=== PATIENT | male | born 1985 ===

== ENCOUNTER 2022-04-15 11:04 | Inpatient (IN) ==
[2022-04-15] MEDS ORDERED: LACTULOSE 20 GM/30 ML UDCUP PO PRN (15:15)
[2022-04-15] MEDS ORDERED: DOCUSATE SODIUM 100 MG CAPSULE PO PRN (15:15)
[2022-04-15] MEDS ORDERED: ALUMINUM/MAGNES/SIMETH MAX STR 30 ML UDCUP PO PRN (15:15)
[2022-04-15] MEDS ORDERED: GLUCAGON 1 MG VIAL IM PRN (15:15)
[2022-04-15] MEDS ORDERED: hydrALAZINE 20 MG/1 ML VIAL IV PRN (15:15)
[2022-04-15] MEDS ORDERED: ACETAMINOPHEN 325 MG TABLET PO PRN (15:15)
[2022-04-15] MEDS ORDERED: ONDANSETRON 4 MG/2 ML VIAL IV PRN (15:15)
[2022-04-15 15:40] LABS: Basophils % 0.7 % (0.0-0.8); Eosinophils # 0.2 10*3/uL (0.0-0.87); Eosinophils % 3.9 % (0.00-10.9); Hematocrit 25.3 VOL% (42.0-52.0); Immature Granulocytes % 0.2 %; Immature Granulocytes Absolute 0.01 #; Lymphocytes # 0.6 10*3/uL (1.4-4.0); Lymphocytes % 12.2 % (21.2-54.2); Mean Corpuscular HGB Conc 31.6 GM/DL (32-36); Mean Corpuscular Volume 87.2 FL (87-102); Mean Platelet Volume 9.1 FL (9.6-12.0); Monocytes # 0.5 10*3/uL (0.11-0.8); Monocytes % 10.3 % (1.7-12.7); Neutrophils % 72.7 % (38.7-73.9); Platelet Count 159 T/CUMM (130-400); Red Cell Distribution Width 17.4 % (9.3-17.3); White Blood Count 4.6 T/CUMM (4-12)
[2022-04-15] MEDS ORDERED: DEXTROSE 10% 250 ML BAG IV PRN (15:46)
[2022-04-15 16:08] LABS: Albumin 2.9 G/DL (3.4-5.0); Bilirubin,Total 0.8 MG/DL (0.20-1.00); Calcium 7.8 MG/DL (8.5-10.1); Osmolality,Calculated 311.7 MOS/KG (273-304); Potassium 3.7 MMOL/L (3.5-5.1); Total Protein 7.3 G/DL (6.4-8.2)
[2022-04-15 16:16] LABS: Thyroid Stimulating Hormone 4.26 uIU/ml (0.358-3.74)
[2022-04-15] MEDS: FUROSEMIDE 40 MG/4 ML VIAL IV SCH (16:22)
[2022-04-15] MEDS: METOPROLOL SUCCINATE XL 25 MG TABLET PO SCH (20:35)
[2022-04-15] MEDS: HEPARIN 5,000 UNIT/1 ML VIAL SUBCUT SCH (20:35)
[2022-04-15] MEDS: ATORVASTATIN 40 MG TABLET PO SCH (20:35)
[2022-04-15] MEDS: FERROUS SULFATE 325 MG TABLET PO SCH (20:35)
[2022-04-15 21:43] LABS: Bilirubin,Urine Negative (Negative); Blood, Urine Small mg/dL (Negative); Glucose,Urine (UA) Negative (Negative); Hyaline Casts,Urine 1 /LPF (0-3); Ketones,Urine Negative (Negative); Mucus,Urine Occasional /LPF (Occasional); Nitrite,Urine Negative (Negative); Protein,Urine 30 mg/dL (Negative); RBC,Urine 5 /HPF (0-4); Squamous Epithelial Cell,Urine Occasional /HPF (0-10); Urine Appearance CLEAR (Clear); Urine Color Yellow (Yellow); Urine Specific Gravity 1.009 (1.001-1.035); Urine Urobilinogen < 2.0 eU/dL (<2.0)
[2022-04-16 04:41] LABS: Basophils % 0.6 % (0.0-0.8); Eosinophils # 0.2 10*3/uL (0.0-0.87); Hematocrit 24.1 VOL% (42.0-52.0); Hemoglobin 7.5 GM/DL (14.0-18.0); Immature Granulocytes % 0.4 %; Immature Granulocytes Absolute 0.02 #; Lymphocytes # 0.9 10*3/uL (1.4-4.0); Lymphocytes % 17.8 % (21.2-54.2); Mean Corpuscular HGB Conc 31.1 GM/DL (32-36); Mean Corpuscular Volume 87.6 FL (87-102); Mean Platelet Volume 9.6 FL (9.6-12.0); Monocytes # 0.5 10*3/uL (0.11-0.8); Monocytes % 11.3 % (1.7-12.7); Neutrophils % 65.9 % (38.7-73.9); Platelet Count 151 T/CUMM (130-400); Red Blood Count 2.75 MC/CUMM (3.8-5.5); Red Cell Distribution Width 17.3 % (9.3-17.3); White Blood Count 4.8 T/CUMM (4-12)
[2022-04-16 05:04] LABS: Albumin 2.8 G/DL (3.4-5.0); Bilirubin,Total 0.8 MG/DL (0.20-1.00); Calcium 7.6 MG/DL (8.5-10.1); Osmolality,Calculated 312.4 MOS/KG (273-304); Risk Ratio 1.45; Total Protein 7.1 G/DL (6.4-8.2)
[2022-04-16] MEDS: FUROSEMIDE 40 MG/4 ML VIAL IV SCH (08:47)
[2022-04-16] MEDS: HEPARIN 5,000 UNIT/1 ML VIAL SUBCUT SCH ×2 (08:47→20:26)
[2022-04-16] MEDS: PANTOPRAZOLE 40 MG TABLET PO SCH (08:48)
[2022-04-16] MEDS: FERROUS SULFATE 325 MG TABLET PO SCH ×3 (08:48→20:26)
[2022-04-16] MEDS: METOPROLOL SUCCINATE XL 25 MG TABLET PO SCH ×2 (08:48→20:26)
[2022-04-16 08:58] LABS: Free T4 (Free Thyroxine) 1.09 NG/DL (0.76-1.46)
[2022-04-16] MEDS: ATORVASTATIN 40 MG TABLET PO SCH (20:26)
[2022-04-17 04:20] LABS: Basophils % 0.5 % (0.0-0.8); Eosinophils # 0.2 10*3/uL (0.0-0.87); Eosinophils % 4.7 % (0.00-10.9); Hemoglobin 7.1 GM/DL (14.0-18.0); Immature Granulocytes % 0.2 %; Immature Granulocytes Absolute 0.01 #; Lymphocytes # 0.9 10*3/uL (1.4-4.0); Lymphocytes % 21.7 % (21.2-54.2); Mean Corpuscular HGB Conc 30.9 GM/DL (32-36); Mean Corpuscular Volume 88.8 FL (87-102); Mean Platelet Volume 9.5 FL (9.6-12.0); Monocytes # 0.5 10*3/uL (0.11-0.8); Monocytes % 12.3 % (1.7-12.7); Neutrophils % 60.6 % (38.7-73.9); Platelet Count 139 T/CUMM (130-400); Red Blood Count 2.59 MC/CUMM (3.8-5.5); Red Cell Distribution Width 17.4 % (9.3-17.3); White Blood Count 4.1 T/CUMM (4-12)
[2022-04-17 04:46] LABS: Calcium 7.6 MG/DL (8.5-10.1); Osmolality,Calculated 317.1 MOS/KG (273-304); Potassium 3.9 MMOL/L (3.5-5.1)
[2022-04-17] MEDS: FERROUS SULFATE 325 MG TABLET PO SCH ×3 (09:20→20:46)
[2022-04-17] MEDS: METOPROLOL SUCCINATE XL 25 MG TABLET PO SCH (09:20)
[2022-04-17] MEDS: PANTOPRAZOLE 40 MG TABLET PO SCH (09:21)
[2022-04-17] MEDS: HEPARIN 5,000 UNIT/1 ML VIAL SUBCUT SCH ×2 (09:23→20:46)
[2022-04-17] MEDS: FUROSEMIDE 40 MG/4 ML VIAL IV SCH (09:23)
[2022-04-17 12:53] LABS: % Iron Saturation 12.7 % (18-50)
[2022-04-17 13:18] LABS: Folate 5.04 NG/ML (5.38-24.0)
[2022-04-17 17:08] LABS: Basophils % 0.7 % (0.0-0.8); Eosinophils # 0.2 10*3/uL (0.0-0.87); Hematocrit 25.1 VOL% (42.0-52.0); Hemoglobin 7.8 GM/DL (14.0-18.0); Immature Granulocytes % 0.2 %; Immature Granulocytes Absolute 0.01 #; Lymphocytes # 0.9 10*3/uL (1.4-4.0); Lymphocytes % 19.2 % (21.2-54.2); Mean Corpuscular HGB Conc 31.1 GM/DL (32-36); Mean Corpuscular Volume 87.8 FL (87-102); Mean Platelet Volume 9.4 FL (9.6-12.0); Monocytes # 0.4 10*3/uL (0.11-0.8); Monocytes % 9.4 % (1.7-12.7); Neutrophils % 66.5 % (38.7-73.9); Platelet Count 152 T/CUMM (130-400); Red Blood Count 2.86 MC/CUMM (3.8-5.5); Red Cell Distribution Width 17.4 % (9.3-17.3); White Blood Count 4.5 T/CUMM (4-12)
[2022-04-17 17:31] LABS: Folate 6.38 NG/ML (5.38-24.0); Vitamin B12 439 PG/ML (211-911)
[2022-04-17 18:13] LABS: Sedimentation Rate-Westergren 69 MM/HR (0-15)
[2022-04-17] MEDS: ATORVASTATIN 40 MG TABLET PO SCH (20:46)
[2022-04-17] MEDS: METOPROLOL SUCCINATE XL 50 MG TABLET PO SCH (20:46)
[2022-04-18 04:51] LABS: Basophils % 0.5 % (0.0-0.8); Eosinophils # 0.2 10*3/uL (0.0-0.87); Eosinophils % 5.2 % (0.00-10.9); Hematocrit 22.5 VOL% (42.0-52.0); Hemoglobin 6.9 GM/DL (14.0-18.0); Immature Granulocytes % 0.3 %; Immature Granulocytes Absolute 0.01 #; Lymphocytes # 0.8 10*3/uL (1.4-4.0); Lymphocytes % 21.2 % (21.2-54.2); Mean Corpuscular HGB Conc 30.7 GM/DL (32-36); Mean Corpuscular Volume 89.3 FL (87-102); Mean Platelet Volume 9.3 FL (9.6-12.0); Monocytes # 0.5 10*3/uL (0.11-0.8); Monocytes % 12.9 % (1.7-12.7); Neutrophils % 59.9 % (38.7-73.9); Platelet Count 123 T/CUMM (130-400); Red Blood Count 2.52 MC/CUMM (3.8-5.5); Red Cell Distribution Width 17.4 % (9.3-17.3); White Blood Count 3.9 T/CUMM (4-12)
[2022-04-18 05:19] LABS: Calcium 7.6 MG/DL (8.5-10.1); Osmolality,Calculated 318.1 MOS/KG (273-304)
[2022-04-18] MEDS ORDERED: SODIUM CHLORIDE 0.9% 1,000 ML IV PRN (08:00)
[2022-04-18] MEDS: PANTOPRAZOLE 40 MG TABLET PO SCH (09:12)
[2022-04-18] MEDS: METOPROLOL SUCCINATE XL 50 MG TABLET PO SCH ×2 (09:12→22:42)
[2022-04-18] MEDS: FERROUS SULFATE 325 MG TABLET PO SCH (09:13)
[2022-04-18] MEDS: HEPARIN 5,000 UNIT/1 ML VIAL SUBCUT SCH ×2 (09:13→22:41)
[2022-04-18] MEDS: FUROSEMIDE 40 MG/4 ML VIAL IV SCH (09:14)
[2022-04-18 12:31] LABS: Hemoglobin A1 (Alkaline) 98.4 % (96.5-98.5); Hemoglobin A2 (Alkaline) 1.6 % (1.5-3.5)
[2022-04-18 19:14] LABS: Hematocrit 26.8 VOL% (42.0-52.0); Hemoglobin 8.3 GM/DL (14.0-18.0)
[2022-04-18] MEDS: ATORVASTATIN 40 MG TABLET PO SCH (22:41)
[2022-04-19 05:36] LABS: Basophils % 0.7 % (0.0-0.8); Eosinophils # 0.2 10*3/uL (0.0-0.87); Eosinophils % 5.5 % (0.00-10.9); Hematocrit 25.8 VOL% (42.0-52.0); Immature Granulocytes % 0.5 %; Immature Granulocytes Absolute 0.02 #; Lymphocytes # 0.9 10*3/uL (1.4-4.0); Lymphocytes % 22.5 % (21.2-54.2); Mean Corpuscular Volume 88.1 FL (87-102); Mean Platelet Volume 9.8 FL (9.6-12.0); Monocytes # 0.5 10*3/uL (0.11-0.8); Monocytes % 12.5 % (1.7-12.7); Neutrophils % 58.3 % (38.7-73.9); Platelet Count 127 T/CUMM (130-400); Red Blood Count 2.93 MC/CUMM (3.8-5.5); Red Cell Distribution Width 17.6 % (9.3-17.3); White Blood Count 4.2 T/CUMM (4-12)
[2022-04-19 05:53] LABS: Calcium 7.9 MG/DL (8.5-10.1); Osmolality,Calculated 314.3 MOS/KG (273-304); Potassium 4.1 MMOL/L (3.5-5.1)
[2022-04-19] MEDS: SODIUM CHLORIDE 0.9% 500 ML IV SCH (08:38)
[2022-04-19] MEDS ORDERED: propofoL 200 MG/20 ML VIAL IV ONE (08:49)
[2022-04-19] MEDS ORDERED: ETOMIDATE 20 MG/10 ML VIAL IV ONE (08:49)
[2022-04-19] MEDS ORDERED: LIDOCAINE 2% 5 ML VIAL ONE (08:49)
[2022-04-19] MEDS ORDERED: FERRIC GLUCONATE COMPLEX 125 MG in SODIUM CHLORIDE 0.9% 100 ML IV SCH (09:00)
[2022-04-19] MEDS ORDERED: PANTOPRAZOLE 40 MG TABLET PO ONE (09:49)
[2022-04-19] MEDS: METOPROLOL SUCCINATE XL 50 MG TABLET PO SCH ×2 (09:56→22:33)
[2022-04-19] MEDS: PANTOPRAZOLE 40 MG TABLET PO SCH ×2 (09:56→22:33)
[2022-04-19] MEDS: ATORVASTATIN 40 MG TABLET PO SCH (22:32)
[2022-04-20 05:11] LABS: Basophils % 0.5 % (0.0-0.8); Eosinophils # 0.2 10*3/uL (0.0-0.87); Eosinophils % 5.6 % (0.00-10.9); Hematocrit 25.2 VOL% (42.0-52.0); Hemoglobin 7.8 GM/DL (14.0-18.0); Immature Granulocytes % 0.2 %; Immature Granulocytes Absolute 0.01 #; Lymphocytes # 0.9 10*3/uL (1.4-4.0); Lymphocytes % 20.8 % (21.2-54.2); Mean Corpuscular Volume 89.7 FL (87-102); Mean Platelet Volume 9.7 FL (9.6-12.0); Monocytes # 0.5 10*3/uL (0.11-0.8); Monocytes % 12.7 % (1.7-12.7); Neutrophils % 60.2 % (38.7-73.9); Platelet Count 119 T/CUMM (130-400); Red Blood Count 2.81 MC/CUMM (3.8-5.5); Red Cell Distribution Width 17.7 % (9.3-17.3); White Blood Count 4.1 T/CUMM (4-12)
[2022-04-20 05:31] LABS: Calcium 7.8 MG/DL (8.5-10.1); Osmolality,Calculated 316.3 MOS/KG (273-304); Potassium 4.1 MMOL/L (3.5-5.1)
[2022-04-20] MEDS: METOPROLOL SUCCINATE XL 50 MG TABLET PO SCH ×2 (10:22→21:18)
[2022-04-20] MEDS: PANTOPRAZOLE 40 MG TABLET PO SCH ×2 (10:22→21:17)
[2022-04-20] MEDS: SODIUM CHLORIDE 0.9% 500 ML IV SCH (10:26)
[2022-04-20] MEDS: FERRIC GLUCONATE COMPLEX 250 MG in SODIUM CHLORIDE 0.9% 100 ML IV SCH (10:26)
[2022-04-20] MEDS ORDERED: SODIUM CHLORIDE 0.9% 1,000 ML IV PRN (13:05)
[2022-04-20] MEDS: ATORVASTATIN 40 MG TABLET PO SCH (21:17)
[2022-04-21 05:59] LABS: Basophils % 0.5 % (0.0-0.8); Eosinophils # 0.2 10*3/uL (0.0-0.87); Eosinophils % 4.9 % (0.00-10.9); Hematocrit 27.2 VOL% (42.0-52.0); Hemoglobin 8.3 GM/DL (14.0-18.0); Immature Granulocytes % 0.3 %; Immature Granulocytes Absolute 0.01 #; Lymphocytes # 0.9 10*3/uL (1.4-4.0); Lymphocytes % 22.3 % (21.2-54.2); Mean Corpuscular HGB Conc 30.5 GM/DL (32-36); Mean Corpuscular Volume 89.8 FL (87-102); Mean Platelet Volume 10.2 FL (9.6-12.0); Monocytes # 0.5 10*3/uL (0.11-0.8); Monocytes % 11.9 % (1.7-12.7); Neutrophils % 60.1 % (38.7-73.9); Platelet Count 124 T/CUMM (130-400); Red Blood Count 3.03 MC/CUMM (3.8-5.5); Red Cell Distribution Width 17.4 % (9.3-17.3); White Blood Count 3.9 T/CUMM (4-12)
[2022-04-21 06:29] LABS: Calcium 7.7 MG/DL (8.5-10.1); Osmolality,Calculated 310.5 MOS/KG (273-304); Potassium 4.1 MMOL/L (3.5-5.1)
[2022-04-21] MEDS: METOPROLOL SUCCINATE XL 50 MG TABLET PO SCH (08:19)
[2022-04-21] MEDS: PANTOPRAZOLE 40 MG TABLET PO SCH (08:19)
[2022-04-21] MEDS: HEPARIN 5,000 UNIT/1 ML VIAL SUBCUT SCH (08:20)
[2022-04-21] MEDS: FERRIC GLUCONATE COMPLEX 250 MG in SODIUM CHLORIDE 0.9% 100 ML IV SCH (08:22)
[2022-04-21] MEDS ORDERED: FUROSEMIDE 80 MG TABLET PO SCH (09:00)
[2022-04-21 19:00] VITALS: BP 111/71
== END 2022-04-21 18:25 | disposition home or self-care (01) | DRG 378 ==
LOC: N.TELEN 14:30 → SUATTDRO 14:30
PROVIDERS: ADMIT Internal Medicine; ATTEND Internal Medicine